=== PATIENT | female | born 1930 | race Caucasian/White ===

== ENCOUNTER → 2017-02-05 | Outpatient (CLI) | payer MEDICARE, BC ==
[~2017-02-05] MED LIST: ATENOLOL PO; AURALGAN; COREG12.5 MG PO; DARVOCET-N 1001 TAB PO; LIPITOR20 MG PO; LOW DOSE ASPIRI81 M1 PO; MULTI-VITAMIN1 EAC1 PO; PLAVIX PO; SYNTHROID PO; ZESTORETIC 10/11 TAB PO
--- NOTE | ~2017-02-05 | MY11 ---
[facility] A Service of [facility] RADIOLOGY TEXT RESULTS PATIENT: LEENA CERVANTES LOCATION: [facility] : 30 UNIT #: [id number] AGE: [address]: Taylor Mary APRN SEX: F ORDER DR: [id number] [facility] [address] [place], [place] [address] [id number] O MR#: [id number] Acc #: [id number] NAME: LEENA CERVANTES. : 1930 SEX: F STUDY DATE/TIME: 02/05/2017 13:56 UNIT: [facility] ROOM: STUDY DESCRIPTION: MY Mammogram Screening Dig Alexys Attending Physician: Taylor Mary A.P.R.N. Referring Physician: Taylor Mary A.P.R.N. Ordering Physician: Taylor Mary A.P.R.N. Primary Care Physician: Taylor Mary A.P.R.N. MEDICAL IMAGING REPORT This report is preliminary unless electronic signature is present EXAM Digital screening mammogram, 02/05/2017 HISTORY 86-year-old woman no risk elevation. Annual screening. COMPARISON Mammograms date to 04/29/2006 with most recent 02/02/2016. FINDINGS Digital imaging of each breast was completed utilizing standard craniocaudal and mediolateral-oblique projections. Review and interpretation of digital mammograms include a second review in conjunction with FDA-approved CAD device. There is an overall increase in the parenchymal presentation bilaterally with a generalized fibronodular pattern in each breast. There are no breast masses and I see no asymmetry in the parenchymal presentation. There are no suspicious microcalcifications and I see no architectural disturbance. IMPRESSION Benign mammogram. One-year followup recommended. Patients over the age of 40 are entered into a reminder system with target due date for the next mammogram. A result letter will also be sent to the patient. BIRADS: 2 Benign finding Dictated by... Fran Hernandez M.D. THIS IS AN ELECTRONICALLY VERIFIED REPORT Fran Hernandez M.D. at 02/05/2017 3:53 PM [facility] A Service of [facility] RADIOLOGY TEXT RESULTS PATIENT: LEENA CERVANTES LOCATION: [facility] : 30 UNIT #: [id number] AGE: [address]: Taylor Mary APRN SEX: F ORDER DR: Diana TD: 02/05/2017 15:26 JOB #: [id number] MEDICAL IMAGING REPORT Page 1 of 1 COPY
== END | disposition home or self-care (01) ==
LOC: CWCC 13:33
DX: Z12.31 Encounter for screening mammogram for malignant neoplasm of breast (principal)
CPT/HCPCS: G0202

== ENCOUNTER → 2017-04-01 | Outpatient (CLI) | payer MEDICARE, BC ==
--- NOTE | ~2017-04-01 | MR15 ---
[facility] A Service of [facility] RADIOLOGY TEXT RESULTS PATIENT: LEENA CERVANTES LOCATION: [facility] : 30 UNIT #: [id number] AGE: [address]: Lefty Sanz MD SEX: F ORDER DR: [id number] [address] [address] [id number] O MR#: [id number] Acc #: [id number] NAME: LEENA CERVANTES : 1930 SEX: F STUDY DATE/TIME: 04/01/2017 13:50 UNIT: [facility] ROOM: STUDY DESCRIPTION: MR Brain W IACS WWo Contrast Attending Physician: Lefty Sanz M.D. Referring Physician: Lefty Sanz M.D. Ordering Physician: Lefty Sanz M.D. Primary Care Physician: Taylor Mary A.P.R.N. MRI CENTER REPORT This report is preliminary unless electronic signature is present. 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 10 mL of MultiHance was used. FINDINGS On diffusion weighted imaging there is no evidence of abnormal restricted diffusion to suggest a recent infarct. The routine brain images show atrophy with chronic ischemic changes around ventricles bilaterally to a moderate degree. There is encephalomalacia in the right frontal lobe in the anterior cerebral artery distribution consistent with old infarct. Mild chronic ischemic changes are seen in the mid kit. Thin detailed sections through the IACs show no evidence of acoustic neuroma or other cerebellopontine angle mass. Postcontrast imaging shows no abnormal enhancement. IMPRESSION 1. Atrophy with chronic ischemic changes around ventricles and in the mid kit. Chronic infarct right frontal lobe. 2. No definite source for a left-sided hearing loss is identified. There is no evidence of acoustic neuroma or other cerebellopontine angle mass. No evidence of recent infarct. Dictated by... [facility] A Service of [facility] RADIOLOGY TEXT RESULTS PATIENT: LEENA CERVANTES LOCATION: [facility] : 30 UNIT #: [id number] AGE: [address]: Lefty Sanz MD SEX: F ORDER DR: Seng Worthy M.D. THIS IS AN ELECTRONICALLY VERIFIED REPORT Seng Worthy M.D. at 04/02/2017 4:10 PM JERRY/carole TD: 04/02/2017 11:16 JOB #: [id number] MRI CENTER REPORT Page 1 of 1
[2017-04-01 16:25] LABS: POC - CREATININE 0.74 mg/dL (0.44-1.03); POC - GFR >60.0 mL/min (>60)
== END | disposition home or self-care (01) ==
LOC: SMRI 13:17
PROVIDERS: Specialist
DX: R42 Dizziness and giddiness (principal); H90.5 Unspecified sensorineural hearing loss; G31.9 Degenerative disease of nervous system, unspecified
CPT/HCPCS: 70553; 82565; A9581